=== PATIENT | female | born 1990 | race Caucasian/White ===

== ENCOUNTER 2017-09-28 10:52 | Emergency (ER) | payer MEDICAID ==
[~2017-09-28] VITALS: Ht 162.6 cm; Wt 64.0 kg
[2017-09-28] MEDS ORDERED: IBUP-1984 PO (12:35)
[2017-09-28] MEDS ORDERED: ibuprofen tablet 400 MG TABLET PO ONE (12:35)
[2017-09-28 12:42] VITALS: BP 120/68
== END 2017-09-28 12:44 | disposition home or self-care (01) ==
LOC: ER 10:52
DX: S13.9XXA Sprain of joints and ligaments of unspecified parts of neck, initial encounter (principal); Z79.899 Other long term (current) drug therapy; V43.53XA Car driver injured in collision with pick-up truck in traffic accident, initial encounter; Y93.89 Activity, other specified; Y92.410 Unspecified street and highway as the place of occurrence of the external cause; Y99.8 Other external cause status
CPT/HCPCS: 99283

== ENCOUNTER 2020-10-04 20:38 | Emergency (ER) | payer MEDICAID ==
[~2020-10-04] VITALS: Ht 170.2 cm; Wt 65.9 kg
[2020-10-04 20:46] VITALS: BP 97/70
[2020-10-04] MEDS ORDERED: LIDOcaine 1% 30ml preserv. free vial IJ ONE (21:25)
[2020-10-04] MEDS ORDERED: LIDO20SO16 PO (22:31)
[2020-10-04] MEDS ORDERED: PENI250T2 PO (22:31)
[2020-10-04] MEDS ORDERED: PRED20TA PO (22:31)
== END 2020-10-04 23:03 | disposition home or self-care (01) ==
LOC: ER 20:39
DX: K04.7 Periapical abscess without sinus (principal); Z72.89 Other problems related to lifestyle; Z79.899 Other long term (current) drug therapy
CPT/HCPCS: 99283

== ENCOUNTER 2020-10-17 10:03 | Emergency (ER) | payer MEDICAID ==
[~2020-10-17 10:03] MED LIST: LIDO20SO16 PO
== END 2020-10-17 11:20 | disposition left against medical advice (07) ==
LOC: ER 10:04
DX: R07.89 Other chest pain (principal); Z53.21 Procedure and treatment not carried out due to patient leaving prior to being seen by health care provider
CPT/HCPCS: 93005